=== PATIENT | female | born 1985 | race Caucasian/White ===

== ENCOUNTER 2023-04-06 11:46 | Day surgery (SDC) | payer OTHER, BC, SELFPAY ==
[2023-04-01 08:59] VITALS: BMI 44.9
--- NOTE | 2023-04-03 17:45 | PM.HP.1 ---
History of Present Illness History of Present Illness Chief complaint: Right Flexor Tendon Transfer Foot Narrative: 38 year old female reports for right foot swelling and pain. The pain has been stable from following all conservative measures recommended. However, patient would like to continue with surgical intervention due to limited improvement of chronic bulge and discomfort to the outside of her right foot. Patient states no concerns for medical clearance after visit with PCP. Patient also states allergies to morphine. Patient denies n/v/f/c/sob/cp. [facility] Medical History (Updated 04/01/23 @ 09:56 by Harika Thomas RN) History of COVID-19 (~2020) Tachycardia Migraines Seasonal allergies BMI 45.0-49.9, adult Surgical History (Updated 04/01/23 @ 09:50 by Harika Thomas RN) H/O left wrist surgery (2015) Hx of tonsillectomy (~1999) Social History household members: spouse Smoking Status: Never smoker alcohol intake: current Meds Home Medications and Allergies Home Medications Medication Instructions Recorded Confirmed Type fexofenadine 180 mg tablet 180 mg PO DAILY 04/01/23 04/01/23 History fluticasone furoate 27.5 1 spray intranasal DAILY 04/01/23 04/01/23 History mcg/actuation nasal spray,suspension (Flonase Sensimist) naproxen sodium 220 mg capsule 440 mg PO DAILY 04/01/23 04/01/23 History (Aleve) oxycodone-acetaminophen 5 mg-325 1 tab PO Q6H PRN pain #40 tabs 04/03/23 Rx mg tablet (Percocet) Allergies Allergy/AdvReac Type Severity Reaction Status Date / Time opioids Allergy Severe Rash, Uncoded 04/01/23 09:49 hives - synthetic versions are ok Review of Systems Review of Systems Narrative: Negative except as mentioned in HPI. Exam Skin Other: Severe non-pitting edema to leg. Neuro Other: NV intact to b/l lower extremities. Extrem Other: Minimal pain on direct palpation to right lateral cuboid. Minimal pain with active eversion against resistance on right foot. Assessment & Plan Assessment & Plan narrative: 1. Right foot os peroneum syndrome. 2. Right peroneal tendonitis. Surgical plan: excision of right foot os peroneum and debridement or repairment of right peroneal tendon. Risks and benefits of the procedure discussed with all questions answered to patient's satisfaction. Reviewed potential complications that may include but not limited to the following: DVT, failure to resolve all symptoms, infection, nerve injury, bleeding, recurrence, or wound. Reviewed surgical technique and general aftercare protocols. All questions answered to patient's satisfaction with no guarantees made. Patient verbalized understanding and agreed with surgical plan. RTC for post-op.
--- NOTE | 2023-04-06 | DI.RAD.S_ITS ---
PROCEDURE: XR FOOT RT 2V INDICATIONS: RT foot surgery TECHNIQUE: 3 intraoperative fluoroscopic views of the foot were acquired. COMPARISON: None. FINDINGS: Intraoperative fluoroscopic images shows surgical instrument placed over lateral aspect of midfoot. IMPRESSION: Fluoro guidance was provided intraoperatively for right foot surgery. Dictated by: Mihir Aiken M.D. on 04/07/2023 at 12:35 Approved by: Mihir Aiken M.D. on 04/07/2023 at 12:36
[2023-04-06 12:36] VITALS: BP 161/91; PULSE 113; RESP 20; TEMP 37.1; O2SAT 98; BMI 44.9
[2023-04-06] MEDS: LACTATED RINGERS 1,000 ML 100 ML IV ×2 (12:41→16:28)
--- NOTE | 2023-04-06 13:47 | SUR.PREOP ---
Block start time [1350] . Right lower extremity popliteal block. Monitoring initiated and maintained throughout procedure. Oxygen and medications given per anesthesiologist instructions. Patient remained stable throughout procedure, no adverse reactions noted. Block end time 1408.
--- NOTE | 2023-04-06 14:51 | SUR.OPER ---
Supine on padded OR bed, head on pillow, arms secured on padded arm boards at <90 degrees abduction, legs uncrossed, safety belt at thigh, tape over blanket over lower left leg.
[2023-04-06 17:43] VITALS: BP 138/68; PULSE 106; RESP 27; TEMP 37.1; O2SAT 96
[2023-04-06 17:45] VITALS: BP 128/81; PULSE 95; RESP 22; O2SAT 100
[2023-04-06 17:51] VITALS: BP 137/84; PULSE 96; RESP 25; O2SAT 99
[2023-04-06 17:55] VITALS: BP 151/89; PULSE 94; RESP 25; O2SAT 100
[2023-04-06] MEDS: OXYCODONE/ACETAMINOPHEN 5/325 TABLET 1 TAB PO (17:59)
[2023-04-06 18:02] VITALS: BP 136/90; PULSE 94; RESP 19; TEMP 36.6; O2SAT 100
--- NOTE | 2023-04-11 13:33 | P.OP_ITS ---
Operative Date/Time/Diagnoses Date of procedure: 04/06/23 Pre-op diagnosis: 1. Right Foot Os Peroneum Syndrome 2. Right Foot Peroneal Tendonitis Post-op diagnosis: same Procedure & Clinicians Procedure: 1. Right Foot Os Peroneum Excision 2. Right Foot Peroneal Tendons Repair Same procedure as scheduled: Yes Indications: Chronic swelling and pain to right lateral foot. Surgeon: Jameson Gomez Click Yes if Unassisted: Yes Anesthesia Type: General and Peripheral nerve block Operative Notes Findings: Ossicle and degenerative changes to peroneal longus and brevis tendons. Closure Type: primary Specimen(s): none sent Applied: cast(s) Estimated Blood Loss (mL): 50 Tourniquet time (min): 115 Procedure in detail: Patient was identified, transported into the operating room on a gurney, and transferred onto the operating table. Patient was in supine position. General anesthesia was administered in the operating room. A thigh tourniquet was applied over cast padding on the right lower limb. The surgical limb was prepped and draped in the usual sterile fashion, followed by an official timeout with the entire operating room in agreement. Attention was directed to the right lateral foot. Incision was made over the peroneal tendon using # 15 scalpel, and dissection was carried out from skin down to the bone in layers. Care was taken to identify and protect the neuroavscular bundles, and electrocautery was used for hemostasis. Peroneal ayde cayetano and brevis tendons were identified, and the longus tendon was traced along its course from rearfoot to midfoot. Both peroneal longus and brevis tendons were found to share degenerative changes at the distal end of incision with split and hypertrophic changes secondary to impingement from os peroneum in the longus tendon. The ossicle was sharply excised as much as possible without transacting the tendon along lateral transverse arch using curved metzenbaum scissor and rongeur with verified decreased in bony prominence on fluoroscopy and palpation. Tourniquet was released and then inflated. Decision was made to repair the peroneal tendons using 2-0 vicryl via tubularization. At this time, the proximal aspect of peroneus brevis and peroneus longus tendon were inspected as far as the incision would allow and was noted to be intact, white, and glistening in appearance. Tournqiuet was released. Procedure site was irrigated copiously using saline and closed from deep to superficial in layers using 3-0 and 4-0 vicryls, 3-0 nylon, and oscar. Surgical foot was wahsed and dried. Sterile dressing applied using betadine soaked Adaptic, gauze, abodminal pad, and Kerlix. Cast padding was applied to entire left lower leg, followed by molding of posterior splint secured by elastic bandages. Patient tolerated procedure without complication and was transferred to PACU hemodynamically stable. Post-operative Condition: stable Disposition: same day surgery Plan for aftercare: NWB to surgical limb. Keep dressing clean, dry, and intact. Elevate surgical limb above heart. Ice behind knee 15 min/hr when awake. Return visit on Thursday04/13/23.
== END 2023-04-06 18:26 | disposition home or self-care (01) ==
PROVIDERS: Referring Provider Podiatrist Foot & Ankle Surgery; Visit Provider Podiatrist Foot & Ankle Surgery
PROC: (CPT 27691; principal; 2023-04-06 13:15)
DX: M76.71 Peroneal tendinitis, right leg (principal); M89.8X7 Other specified disorders of bone, ankle and foot; M79.671 Pain in right foot; M79.89 Other specified soft tissue disorders; G89.29 Other chronic pain
CPT/HCPCS: 28200; 28122; 64450; 73620; 76000; J1100; J1885; J2250; J2704; J3010